=== PATIENT | male | born 1970 | race Caucasian/White ===

== ENCOUNTER 2017-03-05 22:05 | Emergency (ER) | payer MEDICAID ==
[~2017-03-05] VITALS: Ht 175.3 cm; Wt 83.9 kg
[2017-03-05 22:05] VITALS: BP 122/86; PULSE 65; RESP 14; TEMP 98; O2SAT 95
--- NOTE | 2017-03-05 22:05 | NUR ---
Patient to ER bed 8 to gown for evaluation. Side rails up. Report given to AUGUSTA Hill.
--- NOTE | 2017-03-05 22:10 | NUR ---
Pt brought by ambulance BLS,pt Alert to name and place, pt present to ER with possible ETOH, respirations even and unlabored, cap refill <3, pt has poor hygiene, no trauma noted, VS WNL.
[2017-03-05] MEDS ORDERED: FOLIC ACID 1 MG, THIAMINE HCL 100 MG, MAGNESIUM SULFATE 1 GM, MVI 10 ML in NACL 0.9% 1,... IV ONE ×2 (22:30→23:45)
--- NOTE | 2017-03-05 22:35 | NUR ---
Pt ambulated to bathroom, pt refusing to get out from bathroom, pt ambulated back to room but refusing IV or care at this time, uncooperative, pt coursing to staff, VS WNL at this time, pt states [facility] to [facility].
--- NOTE | 2017-03-05 22:36 | NUR ---
Dr Garcia at bedside examining patient
--- NOTE | 2017-03-05 22:36 | NUR ---
Pt states he wants to go to [facility].
--- NOTE | 2017-03-05 22:36 | NUR ---
Note max in EDM - 03/05/17 at 2257 by [email or web address] Pt brought by ambulance BLS,pt Alert to name and place, pt present to ER with possible ETOH, respirations even and unlabored, cap refill <3, pt has poor hygiene, no trauma noted, VS WNL.
--- NOTE | 2017-03-05 22:58 | NUR ---
Report given to Phyllis
[2017-03-05 23:54] LABS: BASOPHILS % (AUTO) 0.5 % (0.0-2.0); EOSINOPHILS # (AUTO) 0.3 K/uL (0.0-0.4); EOSINOPHILS % (AUTO) 4.1 % (0.0-4.0); HEMATOCRIT 47.3 % (36-54); HEMOGLOBIN 15.7 g/dL (14.0-18.0); LYMPHOCYTES # (AUTO) 2.9 K/uL (1.0-5.5); MEAN CORPUSCULAR HEMOGLOBIN 30 pg (27-31); MEAN CORPUSCULAR HGB CONC 33 % (32-36); MEAN CORPUSCULAR VOLUME 89 fL (79.0-98.0); MONOCYTES # (AUTO) 0.5 K/uL (0.0-1.0); MONOCYTES % (AUTO) 7.1 % (1.7-9.3); NEUTROPHILS # (AUTO) 3.8 K/uL (1.8-7.7); NEUTROPHILS % (AUTO) 50.3 % (40.0-70.0); PLATELET COUNT (AUTO) 206 K/uL (130-430); RED CELL DISTRIBUTION WIDTH 12.4 % (9.0-15.0); WHITE BLOOD COUNT (AUTO) 7.5 K/uL (4.8-10.8)
[2017-03-05 23:59] LABS: ANION GAP 7 (5-15); CALCIUM 8.4 mg/dL (8.4-11.0); CHLORIDE 108 mmol/L (98-107); GLUCOSE 99 mg/dL (70-99); POTASSIUM 3.6 mmol/L (3.5-5.1); SODIUM SERUM 141 mmol/L (136-145); UREA NITROGEN, BLOOD 17 mg/dL (8-21)
[2017-03-06 00:03] LABS: ALANINE AMINOTRANSFERASE 21 U/L (12-78); ALBUMIN 3.7 g/dL (3.4-4.8); ALCOHOL, BLOOD 151 mg/dL (<10); ASPARTATE AMINOTRANSFERASE 17 U/L (10-37); SALICYLATE 1 mg/dL (3-30); TOTAL BILIRUBIN 0.5 mg/dL (0.0-1.0); TOTAL PROTEIN, SERUM 6.8 g/dL (6.4-8.3)
[2017-03-06] MEDS ORDERED: FOLIC ACID 5 MG/ML VIAL IV ONE (00:04)
[2017-03-06] MEDS ORDERED: THIAMINE HCL 100 MG/ML VIAL ONE (00:04)
[2017-03-06] MEDS ORDERED: MAGNESIUM SULFATE 1 GM/2 ML VIAL ONE (00:04)
[2017-03-06] MEDS ORDERED: MVI 10 ML VIAL IV ONE (00:04)
[2017-03-06 00:16] LABS: GFR AFRICAN AMERICAN 134 mL/min (>90)
[2017-03-06 00:17] LABS: ACETAMINOPHEN < 1 ug/mL (1-30)
[2017-03-06 06:25] VITALS: BP 125/80; PULSE 78; RESP 16; TEMP 98; O2SAT 95
--- NOTE | 2017-03-06 06:25 | NUR ---
Patient given written and verbal discharge instructions and verbalizes understanding. ER MD DR. PLAZA discussed with patient the results and treatment provided. Patient in stable condition. ID arm band removed. IV catheter removed intact and dressing applied, no active bleeding. Patient educated on pain management and to follow up with PMD. Pain Scale 0/10, STATES HE HAS NO PAIN, AMBULATED W/ STEADY GAIT. Opportunity for questions provided and answered.
== END 2017-03-06 06:25 | disposition home or self-care (01) ==
LOC: SED 22:05
DX: F10.129 Alcohol abuse with intoxication, unspecified (principal); R03.0 Elevated blood-pressure reading, without diagnosis of hypertension
CPT/HCPCS: 36415; 80053; 85025; 96365; 96366; 99285; G0480; G0481; G0482; J3411; J3475; J3490; J7030